=== PATIENT | female | born 1990 | race African-American/Black ===

== ENCOUNTER 2021-03-07 03:27 | Emergency (ER) | payer BC ==
[~2021-03-07] VITALS: Ht 180.3 cm; Wt 71.9 kg
[2021-03-07 04:00] VITALS: BP 170/122
[2021-03-07] MEDS ORDERED: AMOXICILLIN/K CLAV 875/125MG TABLET. PO ONE (04:00)
[2021-03-07] MEDS ORDERED: DEXAMETHASONE 4 MG TABLET PO ONE (04:00)
[2021-03-07] MEDS ORDERED: HYDR-2145 PO (04:11)
[2021-03-07] MEDS ORDERED: NAPR-695 PO (04:11)
[2021-03-07] MEDS ORDERED: AMOX1TAB61 PO (04:11)
[2021-03-07] MEDS ORDERED: CHLO15MO2 PO (04:11)
--- NOTE | 2021-03-07 04:11 | PHYS DOC ---
Past History Past Surgical History: Alcohol Use: None General Adult EDM: Chief Complaint: DENTAL PROBLEM HPI: HPI: Patient is a [age] year old [sex] who presents with [] Review of Systems: Review of Systems: Constitutional: Denies fever or chills Eyes: Denies change in visual acuity HENT: Denies nasal congestion or sore throat Respiratory: Denies cough or shortness of breath Cardiovascular: Denies chest pain or edema GI: Denies abdominal pain, nausea, vomiting, bloody stools or diarrhea : Denies dysuria Musculoskeletal: Denies back pain or joint pain Integument: Denies rash Neurologic: Denies headache, focal weakness or sensory changes Endocrine: Denies polyuria or polydipsia Lymphatic: Denies swollen glands Psychiatric: Denies depression or anxiety Current Medications: Current Meds: Current Medications Medications (Trade) Dose Ordered Sig/Jaz Start Time Stop Time Status Last Admin Dose Admin Amoxicillin/ Clavulanate Potassium (Augmentin 875/ 125mg) 1 tab 1X ONCE 03/07/21 04:00 03/07/21 04:01 DC Dexamethasone (Decadron) 10 mg 1X ONCE 03/07/21 04:00 03/07/21 04:01 DC Allergies: Allergies: Allergies Coded Allergies Type Severity Reaction Last Updated Verified No Known Drug Allergies 03/07/21 No Physical Exam: PE: Constitutional: Well developed, well nourished, no acute distress, non-toxic appearance. [] HENT: Normocephalic, atraumatic, bilateral external ears normal, oropharynx moist, no oral exudates, nose normal. [] Eyes: PERRLA, EOMI, conjunctiva normal, no discharge. [] Neck: Normal range of motion, no tenderness, supple, no stridor. [] Cardiovascular:Heart rate regular rhythm, no murmur [] Lungs & Thorax: Bilateral breath sounds clear to auscultation [] Abdomen: Bowel sounds normal, soft, no tenderness, no masses, no pulsatile masses. [] Skin: Warm, dry, no erythema, no rash. [] Back: No tenderness, no CVA tenderness. [] Extremities: No tenderness, no cyanosis, no clubbing, ROM intact, no edema. [] Neurologic: Alert and oriented X 3, normal motor function, normal sensory function, no focal deficits noted. [] Psychologic: Affect normal, judgement normal, mood normal. [] Current Patient Data: Vital Signs: Vital Signs Date Time Temp Pulse Resp B/P (MAP) Pulse Ox O2 Delivery O2 Flow Rate FiO2 03/07/21 04:00 78 18 99 03/07/21 03:39 97.7 174/133 Room Air EKG: EKG: [] Radiology/Procedures: Radiology/Procedures: [] Heart Score: C/O Chest Pain: N/A Course & Med Decision Making: Course & Med Decision Making Patient presents with report of dentalgia to right mandibular molar that has previously been "cracked ". Tooth appears to be missing posterior aspect. No drainable abscess appreciated. Pain addressed. Empiric antibiotic initiated. Patient also requesting prescription for refill of her blood pressure medication. Patient stable for discharge with outpatient follow-up with PCP/dentist. Discussed findings and plan with patient, who acknowledges understanding and agreement. Marlene Disclaimer: Marlene Disclaimer: This electronic medical record was generated, in whole or in part, using a voice recognition dictation system. Departure Departure: Impression: Primary Impression: Dentalgia Additional Impressions: Broken tooth-uncomplic Medication refill Disposition: HOME / SELF CARE / HOMELESS Condition: STABLE Patient Instructions: Dental Fracture, Medication Refill, Emergency Department, Toothache-Brief Additional Instructions: Please follow up with your dentist regrading your dental issues. Please follow up in the future with your doctor for medication refills for your chronic conditions such as hypertension. Scripts Hydrochlorothiazide (HYDROCHLOROTHIAZIDE TABLET ) 25 Mg Tablet 25 MG PO DAILY for HTN, #14 TAB 0 Refills Prov: ANNE MARIE GARCIA DO 03/07/21 Naproxen (NAPROXEN) 375 Mg Tablet 375 MG PO TID PRN PRN for PAIN, #20 TAB Prov: ANNE MARIE GARCIA DO 03/07/21 Chlorhexidine Gluconate (PERIDEX) 15 Ml Mouthwash 15 ML PO BID for Dental infection, #473 ML 0 Refills Prov: ANNE MARIE GARCIA DO 03/07/21 Amoxicillin/Potassium Clav (AUGMENTIN 875-125 TABLET) 1 Each Tablet 1 TAB PO BID for Dental infection for 7 Days, #14 TAB 0 Refills Prov: ANNE MARIE GARCIA DO 03/07/21 ANNE MARIE GARCIA DO Mar 07, 2021 04:11
== END 2021-03-07 04:14 | disposition home or self-care (01) ==
LOC: ER 03:27
DX: S02.5XXA Fracture of tooth (traumatic), initial encounter for closed fracture (principal); Z76.0 Encounter for issue of repeat prescription; X58.XXXA Exposure to other specified factors, initial encounter; Y93.89 Activity, other specified; Y92.89 Other specified places as the place of occurrence of the external cause; Y99.8 Other external cause status
CPT/HCPCS: 99283; J8540

== ENCOUNTER 2021-04-09 22:40 | Emergency (ER) | payer BC, MEDICAID ==
[~2021-04-09] VITALS: Ht 180.3 cm; Wt 74.0 kg
[~2021-04-09 22:40] MED LIST: AMOX1TAB61 PO; CHLO15MO2 PO; HYDR-2145 PO; NAPR-695 PO
--- NOTE | 2021-04-09 22:55 | PHYS DOC ---
Past History Past Medical History: Hypertension Past Surgical History: Smoking: Non-smoker Alcohol Use: None Drug Use: None General Adult EDM: Chief Complaint: CONGESTION HPI: HPI: 30-year-old female presents with report of nasal congestion that started this morning upon waking. Patient reports she does have problems with seasonal allergies. Denies any fever or chills. Denies known sick contacts. Patient reports she has been crying all day because she recently lost her brother to "AIDS and kidney failure ". Denies . Review of Systems: Review of Systems: Constitutional: Denies fever or chills Eyes: Denies redness or eye pain HENT: Reports nasal congestion; denies sore throat Respiratory: Denies cough or shortness of breath Cardiovascular: Denies chest pain or palpitations GI: Denies abdominal pain, nausea, or vomiting : Denies dysuria or hematuria Musculoskeletal: Denies back pain or joint pain Integument: Denies rash or skin lesions Neurologic: Denies headache, focal weakness or sensory changes Complete systems were reviewed and found to be within normal limits, except as documented in this note. Allergies: Allergies: Allergies Coded Allergies Type Severity Reaction Last Updated Verified No Known Drug Allergies 03/07/21 No Physical Exam: PE: Constitutional: Well developed, well nourished, no acute distress, non-toxic appearance HENT: Normocephalic, atraumatic, clear rhinorrhea noted, enlarged turbinates bilaterally Eyes: Conjunctiva normal, no discharge Neck: Normal range of motion, supple Lungs & Thorax: No respiratory distress, equal chest rise and fall Skin: Warm, dry, no erythema, no rash Neurologic: Alert and oriented X 3, no focal deficits noted Psychologic: Affect normal, judgment normal EKG: EKG: [] Radiology/Procedures: Radiology/Procedures: [] Heart Score: C/O Chest Pain: N/A Course & Med Decision Making: Course & Med Decision Making Patient presents with nasal congestion. Appears to be more inflammatory than infectious. Patient is afebrile. Denies known sick contacts. Denies . Symptomatic treatment provided with Benadryl and oral steroid. Patient stable for discharge with outpatient follow-up with PCP. Discussed findings and plan with patient, who acknowledges understanding and agreement. Marlene Disclaimer: Marlene Disclaimer: This electronic medical record was generated, in whole or in part, using a voice recognition dictation system. Departure Departure: Impression: Primary Impression: Nasal congestion Disposition: HOME / SELF CARE / HOMELESS Condition: STABLE Referrals: PCP,UNKNOWN (PCP) Patient Instructions: Sinusitis, [id number] Additional Instructions: Use over the counter Benadryl or other vypo-jhf-ugyqhbq antihistamine such as Briana or Claritin. Use bedside humidifier at night when sleeping. ANNE MARIE GARCIA DO Apr 09, 2021 22:55
[2021-04-09] MEDS ORDERED: DEXAMETHASONE 4 MG TABLET PO ONE (23:00)
[2021-04-09] MEDS ORDERED: diphenhydrAMINE HCL 25 MG CAPSULE PO ONE (23:00)
[2021-04-09 23:30] VITALS: BP 163/110
== END 2021-04-09 23:31 | disposition home or self-care (01) ==
LOC: ER 22:41
DX: R09.81 Nasal congestion (principal); I10 Essential (primary) hypertension; Z98.890 Other specified postprocedural states
CPT/HCPCS: 99283; J8540; Q0163

== ENCOUNTER 2021-05-24 15:26 | Emergency (ER) | payer BC, MEDICAID ==
[~2021-05-24] VITALS: Ht 180.3 cm; Wt 73.6 kg
--- NOTE | 2021-05-24 15:40 | PHYS DOC ---
Past History Past Medical History: Hypertension Past Surgical History: Smoking: Non-smoker Alcohol Use: None Drug Use: None Adult General HPI HPI Patient is a 30-year-old female resenting for nasal congestion. Onset was 3 days ago and worsening. Nothing known makes better or worse. She has not taken anything in an attempt to alleviate her symptoms. 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 States she was at work today and nasal congestion prompted her to be sent home. She was tested for COVID-19 prior to being released from work by occupational nurse. She is here today for discussion about her symptoms. She has been afebrile. Has high blood pressure but no other medical issues, takes no medications on a daily basis Review of Systems Review of Systems Fourteen body systems of review of systems have been reviewed. See HPI for pertinent positives and negative responses, other tinoco all other systems are negative, non-pertinent or non-contributory Allergies Allergies Allergies Coded Allergies Type Severity Reaction Last Updated Verified No Known Drug Allergies 03/07/21 No Physical Exam Physical Exam General: Appears well, non toxic, and comfortable Skin: Warm, dry. Normal for ethnicity. HEENT: Atraumatic. PERRLA. Rhinorrhea and congestion. Nasal turbinates boggy b/l. Sinus pressure to both maxillary and frontal sinuses with palpation. Moist mucous membranes. Uvula midline. Maintaining secretions. No phonation changes. No cervical lymphadenopathy. Neck: Trachea midline. Normal ROM. No stridor. No nuchal rigidity or meningeal signs Respiratory: Normal WOB. CTAB w/o w/r/r. No tachypnea. Cardiovascular: Regular rate and rhythm. Normal peripheral perfusion. Abdomen: Soft. Non tender. No distension. Back: Normal ROM. Musculoskeletal: No swelling or deformity. Neuro: Alert and oriented x 4. MAEE. Lymph: No cervical LAD. Psych: Normal affect and mood. EKG EKG [] Radiology/Procedures Radiology/Procedures [] Heart Score C/O Chest Pain: No Risk Factors: Risk Factors: DM, Current or recent (<one month) smoker, HTN, HLP, family history of CAD, obesity. Risk Scores: Risk Factors: DM, Current or recent (<one month) smoker, HTN, HLP, family history of CAD, obesity. Course & Med Decision Making Course & Med Decision Making ABCs unremarkable. I disclosed entirety of ER findings and discussed most likely diagnosis of viral syndrome, cannot exclude COVID-19 with previously performed PCR test pending. Supportive care practices and instructions to quarantine at home advised in an unvaccinated individual. Plan of care discussed at length with need for close outpatient follow-up to review today's ER visit stressed. Strict return precautions were also discussed at length with good understanding verbalized by patient. Patient voiced understanding and agreement with the plan. Patient knows to come back for repeat evaluation if concerning signs or symptoms present prior to outpatient follow-up. Hemodynamically stable, ambulatory and well-appearing at time of disposition. Dragon Disclaimer Dragon Disclaimer This electronic medical record was generated, in whole or in part, using a voice recognition dictation system. Departure Departure: Impression: Primary Impression: Person under investigation for COVID-19 Additional Impression: Viral syndrome Disposition: HOME / SELF CARE / HOMELESS Condition: STABLE Referrals: PCP,NO (PCP) Patient Instructions: Viral Syndrome Additional Instructions: You were seen for nasal congestion and possible infection with COVID-19. Your physical exam was reassuring. You were previously tested for COVID-19 but this test does not come back for 1 to 2 days. In the meantime you need to quarantine yourself at home away from all other individuals, especially those who are elde rly or have any other chronic health issues or an immunocompromised status. Please take an xdbr-ekh-ibcyjxa antihistamine such as Briana, Claritin, Zyrtec or other alternative in addition to Afrin nose spray for no longer than 3 days. You should return to the ED if you develop worsening cough, shortness of breath, chest pain, or any other new or concerning symptoms. Alternate Tylenol and ibuprofen as needed for body aches and pain. If your test does come back positive you need to quarantine yourself for 10 days until symptom-free. You should make sure to drink plenty of fluids and get plenty of rest. Problem Qualifiers RICHY FISH DO May 24, 2021 15:40
[2021-05-24 16:26] VITALS: BP 169/105
== END 2021-05-24 16:23 | disposition home or self-care (01) ==
LOC: ER 15:26
DX: R09.81 Nasal congestion (principal); B34.9 Viral infection, unspecified; I10 Essential (primary) hypertension; Z20.822 Contact with and (suspected) exposure to COVID-19
CPT/HCPCS: 99281

== ENCOUNTER 2021-05-28 18:26 | Emergency (ER) | payer BC, MEDICAID ==
[~2021-05-28] VITALS: Ht 180.3 cm; Wt 74.0 kg
[2021-05-28 18:52] VITALS: BP 147/107
[2021-05-28] MEDS ORDERED: FLUT16SP21 NS (19:25)
--- NOTE | 2021-05-28 19:26 | PHYS DOC ---
Past History Past Medical History: Hypertension (DULCE ADAMS) Past Surgical History: (DULCE ADAMS) Smoking: Non-smoker Alcohol Use: None Drug Use: None (DULCE ADAMS) General Adult EDM: Chief Complaint: CONGESTION HPI: HPI: Patient is a 30 year old female who presents with persistent nasal congestion. Patient states that she was seen last Thursday and was instructed to take sxvv-nzq-hlpttzz antihistamine tablets. She reports these are not helping. She denies any new symptoms, only persistent congestion that has caused her difficulty sleeping. Patient denies fever, chills, shortness of breath, sore throat, cough, chest pain, palpitations. (DULCE ADAMS) Review of Systems: Review of Systems: 12 systems reviewed. ROS negative except as mentioned in HPI. (DULCE ADAMS) Allergies: Allergies: Allergies Coded Allergies Type Severity Reaction Last Updated Verified No Known Drug Allergies 03/07/21 No (DULCE ADAMS) Physical Exam: PE: Constitutional: Well developed, well nourished, no acute distress, non-toxic appearance. HENT: Normocephalic, atraumatic, bilateral external ears normal, oropharynx moist, no oral exudates, bilateral nasal turbinates swollen and pale with nasal canal mucus erythema appreciated. Eyes: PERRLA, EOMI, conjunctiva normal, no discharge. Cardiovascular: Heart rate regular rhythm, no murmur. Lungs & Thorax: Bilateral breath sounds clear to auscultation. (DULCE ADAMS) Current Patient Data: Vital Signs: Vital Signs Date Time Temp Pulse Resp B/P (MAP) Pulse Ox O2 Delivery O2 Flow Rate FiO2 05/28/21 18:52 98.2 84 16 147/107 (120) 98 Room Air (DULCE ADAMS) Heart Score: C/O Chest Pain: No (DULCE ADAMS) Course & Med Decision Making: Course & Med Decision Making Pertinent Labs and Imaging studies reviewed. (See chart for details) Patient's current symptoms are consistent with allergic rhinitis. Patient will be treated with Flonase, p.o. antihistamine, p.o. decongestant and humidifier at night. Patient's blood pressure is elevated in the department, patient is aware that she needs to follow-up with her primary care provider for regular management of her prescription regimen. Patient advised to follow-up with primary care if her symptoms do not improve in the next few days. Patient understands and is agreeable to discharge plan. (DULCE ADAMS) Course & Med Decision Making I was the Attending physician on the above date of service of this patient. This patient was evaluated, examined, treated, and dispositioned from the emergency department by the mid-level practitioner. Although I was working at the time , no assistance was requested. Electronically signed, Richy Fish DO (RICHY FISH DO) Marlene Disclaimer: Dragdewayne Disclaimer: This electronic medical record was generated, in whole or in part, using a voice recognition dictation system. (DULCE ADAMS) Departure Departure: Impression: Primary Impression: Rhinitis Qualified Codes: J30.9 - Allergic rhinitis, unspecified Disposition: HOME / SELF CARE / HOMELESS Condition: STABLE Referrals: PCP,NO (PCP) Patient Instructions: Allergic Rhinitis Additional Instructions: As discussed, continue taking daily allergy medication tablet. In addition, I would like you to start taking an jptr-kxq-eqpbsgb decongestant, such as Mucinex. I have prescribed a Flonase nasal spray, which she can greens picker at the pharmacy. Sleep at night with a humidifier by your bed to keep mucous secretions moist and easier expelled. You may follow-up with your primary care provider if your symptoms do not improve in the next couple of days. Return to the emergency department if you have worsening symptoms, especially difficulty breathing. Scripts Fluticasone Propionate (FLUTICASONE PROPIONATE NASAL SPRAY) 16 Gm Oakes.susp 2 SPR NS DAILY for rhinitis, #1 INHALER 11 Refills Prov: DULCE ADAMS 05/28/21 DULCE ADAMS May 28, 2021 19:26 RICHY FISH DO May 29, 2021 00:46
== END 2021-05-28 19:31 | disposition home or self-care (01) ==
LOC: ER 18:26
DX: J30.9 Allergic rhinitis, unspecified (principal); I10 Essential (primary) hypertension; Z98.890 Other specified postprocedural states
CPT/HCPCS: 99283